=== PATIENT | male | born 1970 | race American Indian/Alaskan Native ===

== ENCOUNTER 2020-06-18 18:58 | Emergency (ER) | payer OTHER ==
[2020-06-18] MEDS ORDERED: ACETAMINOPHEN 325 MG TAB PO ONE (20:47)
--- NOTE | 2020-06-18 21:23 | XRay Report ---
XR chest routine 2V INDICATION / CLINICAL INFORMATION: cough. COMPARISON: None available. FINDINGS: SUPPORT DEVICES: None. HEART /PULMONARY VASCULATURE: No significant abnormality. LUNGS / PLEURA: Focal opacities are suspected within the lateral right mid lung and lateral left lung base. No pleural effusion or pneumothorax. ADDITIONAL FINDINGS: No significant additional findings. IMPRESSION: Mild focal airspace opacities in the right lung and left lung base, may reflect atelectasis or develo ping infiltrate. Signer Name: Chacho Lara MD Signed: 06/18/2020 9:18 PM Workstation Name: [id number]
[2020-06-18 21:24] LABS: Basophils # (Auto) 0.1 K/mm3 (0.0-0.1); Basophils % (Auto) 1.4 % (0.0-1.8); Hematocrit 35.7 % (35.5-45.6); Hemoglobin 11.6 gm/dl (11.8-15.2); Lymphocytes # (Auto) 1.3 K/mm3 (1.2-5.4); Mean Corpuscular HGB Conc 33 % (32-34); Mean Corpuscular Volume 89 fl (84-94); Monocytes # (Auto) 0.6 K/mm3 (0.0-0.8); Monocytes % (Auto) 11.7 % (0.0-7.3); Platelet Count 319 K/mm3 (140-440); Red Blood Count 4.01 M/mm3 (3.65-5.03); Red Cell Distribution Width 12.9 % (13.2-15.2)
[2020-06-18 21:39] LABS: Blood Urea Nitrogen 11 mg/dL (9-20); Calcium 8.8 mg/dL (8.4-10.2); Hemolysis Index 17
[2020-06-18 21:42] LABS: BUN/Creatinine Ratio 16
--- NOTE | 2020-06-18 21:59 | Emergency Department Report ---
- General Chief Complaint: Upper Respiratory Infection Stated Complaint: COUGH Time Seen by Provider: 06/18/20 21:07 Source: patient Mode of arrival: Ambulatory Limitations: No Limitations - History of Present Illness Initial Comments: Patient is a 49-year-old male who presents emergency room complaints of a cough that began a week ago. He states that initially he had clear sputum but the last 2 days it has turned white/brown. He has associated chest discomfort and rib discomfort after frequent coughing. He states he has a headache, fatigue, generalized weakness, shortness of breath after frequent coughing, generalized body aches. He states that he did not feel like he had a fever at home but upon triage in the emergency department his temperature was 100.1. He denies any chills, nausea, vomiting, diarrhea, abdominal pain. He denies any sick contacts or recent travel. No past medical history. No allergies medications. He states he is a non-smoker. He states that he received COVID-19 testing on 06/16/2020 via nasal PCR and it was negative. - Related Data Previous Rx's Medication Instructions Recorded Last Taken Type Albuterol Sulfate [Proventil Hfa] 6.7 gm IH TID PRN #1 hfa.aer.ad 06/18/20 Unknown Rx Amoxicillin/Potassium Clav 1 each PO BID 7 Days #14 tablet 06/18/20 Unknown Rx [Augmentin 875-125 Tablet] Azithromycin [Zithromax Z-KIRBY] 250 mg PO DAILY 5 Days #6 tablet 06/18/20 Unknown Rx Prednisone [predniSONE 10 mg 10 mg PO .TAPER #1 tab.ds.pk 06/18/20 Unknown Rx (6-Day Pack, 21 Tabs)] guaiFENesin ER [Mucinex ER] 600 mg PO Q12H #14 tablet.er 06/18/20 Unknown Rx Allergies Allergy/AdvReac Type Severity Reaction Status Date / Time No Known Allergies Allergy Unverified 06/18/20 20:42 ED Review of Systems ROS: Stated complaint: COUGH Other details as noted in HPI Comment: All other systems reviewed and negative ED Past Medical Hx - Past Medical History Previous Medical History?: No - Surgical History Past Surgical History?: No - Social History Smoking Status: Never Smoker Substance Use Type: None - Medications Home Medications: Home Medications Medication Instructions Recorded Confirmed Last Taken Type Albuterol Sulfate [Proventil Hfa] 6.7 gm IH TID PRN #1 hfa.aer.ad 06/18/20 Unknown Rx Amoxicillin/Potassium Clav 1 each PO BID 7 Days #14 tablet 06/18/20 Unknown Rx [Augmentin 875-125 Tablet] Azithromycin [Zithromax Z-KIRBY] 250 mg PO DAILY 5 Days #6 tablet 06/18/20 Unknown Rx Prednisone [predniSONE 10 mg 10 mg PO .TAPER #1 tab.ds.pk 06/18/20 Unknown Rx (6-Day Pack, 21 Tabs)] guaiFENesin ER [Mucinex ER] 600 mg PO Q12H #14 tablet.er 06/18/20 Unknown Rx ED Physical Exam - General Limitations: No Limitations General appearance: alert, in no apparent distress - Head Head exam: Present: atraumatic, normocephalic - Eye Eye exam: Present: normal appearance - ENT ENT exam: Present: mucous membranes moist - Respiratory Respiratory exam: Present: normal lung sounds bilaterally. Absent: respiratory distress, wheezes, rales, rhonchi, stridor, chest wall tenderness, accessory muscle use, decreased breath sounds, prolonged expiratory - Cardiovascular Cardiovascular Exam: Present: regular rate, normal rhythm, normal heart sounds. Absent: systolic murmur, diastolic murmur, rubs, gallop - Neurological Exam Neurological exam: Present: alert, oriented X3 - Psychiatric Psychiatric exam: Present: normal affect, normal mood - Skin Skin exam: Present: warm, dry, intact ED Course Vital Signs 06/18/20 06/18/20 20:33 22:05 Temperature 100.1 F H 98.4 F Pulse Rate 82 85 Respiratory 18 18 Rate Blood Pressure 141/91 Blood Pressure 128/85 [Left] O2 Sat by Pulse 99 97 Oximetry ED Medical Decision Making - Lab Data Result diagrams: 06/18/20 21:05 06/18/20 21:05 Lab Results 06/18/20 06/18/20 Range/Units 21:05 21:05 WBC 4.8 (4.5-11.0) K/mm3 RBC 4.01 (3.65-5.03) M/mm3 Hgb 11.6 L (11.8-15.2) gm/dl Hct 35.7 (35.5-45.6) % MCV 89 (84-94) fl MCH 29 (28-32) pg MCHC 33 (32-34) % RDW 12.9 L (13.2-15.2) % Plt Count 319 (140-440) K/mm3 Lymph % (Auto) 27.0 (13.4-35.0) % [place] % (Auto) 11.7 H (0.0-7.3) % Eos % (Auto) 1.0 (0.0-4.3) % Baso % (Auto) 1.4 (0.0-1.8) % Lymph # (Auto) 1.3 (1.2-5.4) K/mm3 [place] # (Auto) 0.6 (0.0-0.8) K/mm3 Eos # (Auto) 0.0 (0.0-0.4) K/mm3 Baso # (Auto) 0.1 (0.0-0.1) K/mm3 Seg Neutrophils % 58.9 (40.0-70.0) % Seg Neutrophils # 2.8 (1.8-7.7) K/mm3 Sodium 135 L (137-145) mmol/L Potassium 4.7 (3.6-5.0) mmol/L Chloride 97.6 L (98-107) mmol/L Carbon Dioxide 31 H (22-30) mmol/L Anion Gap 11 mmol/L BUN 11 (9-20) mg/dL Creatinine 0.7 L (0.8-1.3) mg/dL Estimated GFR > 60 ml/min BUN/Creatinine Ratio 16 % Glucose 113 H (75-100) mg/dL Calcium 8.8 (8.4-10.2) mg/dL Vital Signs 06/18/20 06/18/20 20:33 22:05 Temperature 100.1 F H 98.4 F Pulse Rate 82 85 Respiratory 18 18 Rate Blood Pressure 141/91 Blood Pressure 128/85 [Left] O2 Sat by Pulse 99 97 Oximetry - Radiology Data Radiology results: report reviewed Chest x-ray Radiologist Chacho Lara MD Impression mild focal airspace opacities in the right lung and left lung base, may reflect atelectasis or developing infiltrate. - Medical Decision Making Patient is a 49-year-old male who presents emergency room complaints of a cough that began a week ago. He states that initially he had clear sputum but the last 2 days it has turned white/brown. He has associated chest discomfort and rib discomfort after frequent coughing. He states he has a headache, fatigue, generalized weakness, shortness of breath after frequent coughing, generalized body aches. He states that he did not feel like he had a fever at home but upon triage in the emergency department his temperature was 100.1. He denies any chills, nausea, vomiting, diarrhea, abdominal pain. He denies any sick contacts or recent travel. No past medical history. No allergies medications. He s tates he is a non-smoker. He states that he received COVID-19 testing on 06/16/2020 via nasal PCR and it was negative. Initial vitals with low-grade fever, improved to normal upon Tylenol administration. Breath sounds are clear bilaterally, no wheezing, no rales, no rhonchi. Labs are stable. Chest x-ray: mild focal airspace opacities in the right lung and left lung base, may reflect atelectasis or developing infiltrate. Discussed all results with patient and answered questions. Discussed the possibility of COVID-19 with patient, discussed return precautions, discussed outpatient testing, discussed self quarantine. Could be community-acquired pneumonia versus viral pneumonia from COVID-19. Patient does not meet hospital criteria for admission or for hospital COVID-19 testing. Patient given prescription for Augmentin, azithromycin, prednisone, Mucinex, albuterol inhaler. Advised patient Please take medication as prescribed. Please increase your fluid intake over the next several days. May take Tylenol as needed for fever or body aches. Follow-up with a primary care doctor for reexamination. Return to emergency room immediately for any new or worsening symptoms including but not limited to difficulty breathing, shortness of breath, severe chest pain, unable to tolerate by mouth intake, etc. Please self quarantine for 2 weeks from the onset of your symptoms. Please do not go out in public. If you are around others at home please wear a mask. If you need to cough or sneeze please do so in a napkin and immediately throw it away and immediately wash your hands. Wash your hands frequently. Wipe everything down. - Differential Diagnosis PNA, URI, COVID-19, viral syndrome, acute bronchitis Critical care attestation.: If time is entered above; I have spent that time in minutes in the direct care of this critically ill patient, excluding procedure time. ED Disposition Clinical Impression: Pneumonia Qualifiers: Pneumonia type: due to unspecified organism Laterality: bilateral Lung location: lower lobe of lung Qualified Code(s): J18.9 - Pneumonia, unspecified o rganism Disposition: TO HOME OR SELFCARE Is pt being admited?: No Does the pt Need Aspirin: No Condition: Stable Instructions: COVID-19, COVID-19: How to Protect Yourself and Others - CDC, Community-Acquired Pneumonia, Adult, Bacterial Pneumonia (ED) Additional Instructions: Please take medication as prescribed. Please increase your fluid intake over the next several days. May take Tylenol as needed for fever or body aches. Follow-up with a primary care doctor for reexamination. Return to emergency room immediately for any new or worsening symptoms including but not limited to difficulty breathing, shortness of breath, severe chest pain, unable to tolerate by mouth intake, etc. Please self quarantine for 2 weeks from the onset of your symptoms. Please do not go out in public. If you are around others at home please wear a mask. If you need to cough or sneeze please do so in a napkin and immediately throw it away and immediately wash your hands. Wash your hands frequently. Wipe everything down. Prescriptions: Amoxicillin/Potassium Clav [Augmentin 875-125 Tablet] 1 each PO BID 7 Days #14 tablet guaiFENesin ER [Mucinex ER] 600 mg PO Q12H #14 tablet.er Prednisone [predniSONE 10 mg (6-Day Pack, 21 Tabs)] 10 mg PO .TAPER #1 tab.ds.pk Albuterol Sulfate [Proventil Hfa] 6.7 gm IH TID PRN #1 hfa.aer.ad PRN Reason: Shortness Of Breath Azithromycin [Zithromax Z-KIRBY] 250 mg PO DAILY 5 Days #6 tablet Referrals: PRIMARY CAREMD [Primary Care Provider] - 2-3 Days TERRI KENNEDY MD [Staff Physician] - 2-3 Days [facility] [Provider Group] - 2-3 Days [facility], [LAB/CONTRACT] - 2-3 Days Time of Disposition: 21:56 Print Language: CHINESE
[2020-06-18 22:06] VITALS: BP 128/85
== END 2020-06-18 22:08 | disposition home or self-care (01) ==
LOC: ED 18:58
DX: J18.9 Pneumonia, unspecified organism (principal); Z79.2 Long term (current) use of antibiotics; Z79.899 Other long term (current) drug therapy
CPT/HCPCS: 36415; 71046; 80048; 85025